=== PATIENT | male | born 1940 ===

== ENCOUNTER → 2020-06-01 | Outpatient (CLI) | payer MEDICARE ==
[2020-06-01 10:39] LABS: Hematocrit 42.6 % (37.0-53.0); Hemoglobin 13.5 g/dL (13.5-17.5)
[2020-06-01 10:50] LABS: Source, Urine Clean Catch
[2020-06-01 11:15] LABS: Bilirubin, Urine Neg (Neg); Blood, Urine Neg (Neg); Glucose Qualitative, Urine Neg (Neg); Ketones, Urine Neg (Neg); Leukocyte Esterase, Urine Neg (Neg); Nitrite, Urine Neg (Neg); Protein, Urine Neg (Neg); Urobilinogen, Urine NORM (Normal)
[2020-06-01 11:32] LABS: Appearance, Urine Clear (Clear); Color, Urine Yellow (P-Yellow)
[2020-06-01 12:44] LABS: Protein, Urine Random 12.1 mg/dL (0.0-11.9)
[2020-06-01 13:16] LABS: Albumin, Blood 3.4 g/dL (3.4-5.0); Anion Gap 3 mmol/L (6-16); Blood Urea Nitrogen 25 mg/dL (8-24); Bun/Creatinine Ratio 23.4 (12.0-20.0); CO2, Blood 28 mmol/L (21-32); Calcium, Blood 8.6 mg/dL (8.5-10.1); Chloride, Blood 112 mmol/L (98-108); Creatinine, Blood 1.07 mg/dL (0.60-1.20); Glomerular Filtration Rate >60 (60-); Glucose, Blood 91 mg/dL (70-99); Phosphorus, Blood 3.8 mg/dL (2.5-4.9); Potassium, Blood 4.6 mmol/L (3.5-5.5); Sodium, Blood 143 mmol/L (136-145)
== END | disposition home or self-care (01) ==
LOC: OLS 09:58 → LAB SHORT 09:58
PROVIDERS: Internal Medicine
DX: N18.3 Chronic kidney disease, stage 3 (moderate) (principal); E55.9 Vitamin D deficiency, unspecified
CPT/HCPCS: 80069; 81003; 82306; 82570; 83970; 84156; 85014; 85018

== ENCOUNTER → 2020-06-20 | Outpatient (CLI) | payer MEDICARE | END | disposition home or self-care (01) | LOC: LAB SHORT 16:04 → LAB 16:04 | DX: D48.5 Neoplasm of uncertain behavior of skin (principal) | CPT/HCPCS: 88305 ==

== ENCOUNTER 2021-07-19 18:03 | Emergency (ER) | payer MEDICARE ==
[~2021-07-19] VITALS: Ht 175.3 cm; Wt 86.2 kg
[2021-07-19] MEDS ORDERED: ALLO100 PO (18:19)
[2021-07-19] MEDS ORDERED: METO25ER PO (18:20)
[2021-07-19] MEDS ORDERED: METO25 PO (18:20)
[2021-07-19] MEDS ORDERED: ZOCOR20 MG PO (18:20)
[2021-07-19] MEDS ORDERED: EUTHYROX50 MCG PO (18:20)
[2021-07-19] MEDS ORDERED: ASPIR 8181 M1 PO (18:21)
== END 2021-07-19 19:22 | disposition home or self-care (01) ==
LOC: ER 18:03
DX: S01.01XA Laceration without foreign body of scalp, initial encounter (principal); Z79.899 Other long term (current) drug therapy; Z79.82 Long term (current) use of aspirin; W26.8XXA Contact with other sharp object(s), not elsewhere classified, initial encounter
CPT/HCPCS: 12002; 70450; 99283-25

== ENCOUNTER → 2021-09-05 | Outpatient (CLI) | payer MEDICARE ==
[~2021-09-05] MED LIST: ALLO100 PO; ASPIR 8181 M1 PO; EUTHYROX50 MCG PO; METO25 PO; METO25ER PO; ZOCOR20 MG PO
== END | disposition home or self-care (01) ==
LOC: LAB 11:40 → LAB SHORT 11:40
DX: L57.0 Actinic keratosis (principal); L83 Acanthosis nigricans
CPT/HCPCS: 88305

== ENCOUNTER 2021-12-02 11:02 | Emergency (ER) | payer MEDICARE ==
[~2021-12-02] VITALS: Ht 175.3 cm; Wt 87.5 kg
== END 2021-12-02 14:12 | disposition home or self-care (01) ==
LOC: ER 11:02
DX: J40 Bronchitis, not specified as acute or chronic (principal); Z79.82 Long term (current) use of aspirin; Z79.899 Other long term (current) drug therapy
CPT/HCPCS: 71046; 99284-25

== ENCOUNTER → 2023-11-06 | Outpatient (CLI) | payer MEDICARE | LOC: LAB 13:10 → LAB SHORT 13:10 | DX: B35.1 Tinea unguium (principal) | CPT/HCPCS: 87102 ==

== ENCOUNTER 2024-03-22 08:08 | Day surgery (SDC) | payer MEDICARE ==
[~2024-03-22] VITALS: Ht 175.3 cm; Wt 87.5 kg
[~2024-03-22 08:08] MED LIST changes: +Lactated Ringer's 1,000 ML IV ONE
[2024-03-22] MEDS ORDERED: ALLO300 PO (09:00)
[2024-03-22] MEDS ORDERED: METO50 PO (09:02)
[2024-03-22] MEDS ORDERED: Ropivacaine 0.5% HCl/Pf 5 MG/ML 20ML VIAL ONE ×2 (09:09→10:32)
[2024-03-22] MEDS ORDERED: Lactated Ringer's 1,000 ML IV ONE ×2 (09:14→12:14)
[2024-03-22] MEDS ORDERED: CeFAZolin Sodium 2,000 MG VIAL ONE (09:21)
[2024-03-22] MEDS ORDERED: NS 50 ML IV ONE (09:22)
--- NOTE | 2024-03-22 10:16 | NUR ---
03/22/24 Susan Jara PT SEEN BY DR. YUSUF AT 1014. DELAY IN CARE, DR. YUSUF WAS RUNNING LATE.
[2024-03-22] MEDS ORDERED: Dexamethasone Sod Phos 10 MG/ML 1ML VIAL ONE ×2 (10:29→11:16)
[2024-03-22] MEDS ORDERED: propofoL 20 ML IV ONE (10:30)
[2024-03-22] MEDS ORDERED: Midazolam HCL 1 MG/ML 5MLVIAL ONE (10:30)
[2024-03-22] MEDS ORDERED: Midazolam HCl 1MG / ML 2ML Vial ONE (10:30)
[2024-03-22] MEDS ORDERED: FentaNYL Citrate 50 MCG/ML 2 ML Injection ONE (11:10)
[2024-03-22] MEDS ORDERED: Ondansetron HCl 2 MG / ML 2ML Vial ONE (11:16)
[2024-03-22] MEDS ORDERED: Sugammadex Sodium 200 MG/2ML SDV (100 MG/ML) ONE (11:21)
--- NOTE | 2024-03-22 11:21 | NUR ---
03/22/24 1121 Gladsi Shepard 30ML OF ROPIVACAINE 0.5% MIXED AND VERIFIED WITH 0.15ML OF EPI (1MG/ML) TO MAKE ROPIVACAINE 0.5% WITH EPI 1:200,000 FOR INJECTION AT THE OPSITE BY DR YUSUF.
[2024-03-22] MEDS ORDERED: EPINEPhrine HCl 1 MG/ML 1ML Amp XX ONE ×2 (11:28)
[2024-03-22 12:29] VITALS: BP 129/66
--- NOTE | 2024-03-22 12:42 | NUR ---
03/22/24 1242 HILARIO CARRANZA PT AND DTR IN AT BEDSIDE. PT EATING AND DRINKING WO DIFF.
== END 2024-03-22 13:35 | disposition home or self-care (01) ==
LOC: ORSCSDS 08:08
PROVIDERS: Podiatrist Foot & Ankle Surgery
PROC: 0L8N0ZZ Division of Right Lower Leg Tendon, Open Approach (ICD-10-PCS; principal; 2024-03-22 09:45)
PROC: 0QBL0ZZ Excision of Right Tarsal, Open Approach (ICD-10-PCS; principal; 2024-03-22 09:45)
DX: M76.61 Achilles tendinitis, right leg (principal); E78.5 Hyperlipidemia, unspecified; E03.9 Hypothyroidism, unspecified; G47.33 Obstructive sleep apnea (adult) (pediatric); I12.9 Hypertensive chronic kidney disease with stage 1 through stage 4 chronic kidney disease, or unspecified chronic kidney disease; N18.30 Chronic kidney disease, stage 3 unspecified; Z79.899 Other long term (current) drug therapy; Z79.82 Long term (current) use of aspirin; Z85.820 Personal history of malignant melanoma of skin
CPT/HCPCS: C1713; J0171; J0690; J1100; J2250; J2405; J2704; J2795; J3010; J7120